=== PATIENT | female | born 1975 | race Caucasian/White ===

== ENCOUNTER 2024-03-22 21:24 | Emergency (ER) | payer OTHER, MEDICAID, SELFPAY ==
[2024-03-22 21:31] VITALS: BP 148/91
[2024-03-22] MEDS: TORADOL 60 MG IM (22:35)
[2024-03-22 22:46] LABS: % Basophils 0.4 % (0-2); % Eosinophils 2.5 % (0-6); % Immature Granulocytes 0.3 % (0-0.5); % Monocytes 7.5 % (1.7-9.3); % Neutrophils 57.3 % (42.2-75.2); Absolute Eosinophils 0.2 10^3/uL (0-0.7); Absolute Lymphocytes 3.1 10^3/uL (1.2-3.4); Absolute Monocytes 0.7 10^3/uL (0.1-0.6); Absolute Neutrophils 5.5 10^3/uL (1.4-6.5); Hematocrit 39.3 % (37.0-47.0); Hemoglobin 13.5 g/dL (12.0-16.0); Mean Corp Hgb Conc. 34.4 g/dL (33.0-37.0); Mean Corpuscular Hgb 29.8 pg (27.0-31.0); Mean Corpuscular Volume 86.8 fL (81.0-99.0); Mean Platelet Volume 9.8 fL (7.4-10.4); Nucleated Red Blood Cells % 0 %; Platelet Count 198 10^3/uL (130-400); Red Blood Cell Count 4.53 10^6/uL (4.20-5.40); Red Cell Dist. Width 12.9 % (11.5-14.5); White Blood Cell Count 9.6 10^3/uL (4.8-10.8)
--- NOTE | 2024-03-22 22:46 | ED.GENMED ---
History of Present Illness
General
Chief Complaint: Back Pain
Source: patient
Exam Limitations: none
Time Seen by Provider: 03/22/24 22:11
History of Present Illness
History of Present Illness:
Patient complaining of low back pain and bilateral knee pain for over a week. No distal numbness tingling. No bowel or bladder issues. No fever. No history of trauma. Patient does walk significantly at work. Taking Advil with no benefit
Past History
Past History
ED Past Medical History: HTN and Hypothyroidism
ED Past Surgical History: and Other
Review of Systems
Review of Systems
All Other Systems: Not applicable
Constitutional: Denies fever or chills
ABD/GI: Reports no symptoms
: Reports no symptoms
Phy Exam
Physical Exam
Physical Exam:
GENERAL: Alert and oriented in no apparent distress
EYE: Orbits normal.
NECK: Supple
CARDIAC: Regular rate and rhythm without any obvious murmurs.
LUNGS: Clear breath sounds,normal
ABDOMEN: Soft, without focal tenderness or distention. Elevated BMI
NEUROLOGICAL: Alert and oriented , grossly non-focal
SKIN: Warm and dry, no rash or lesion, no discoloration, skin intact.
MUSCULOSKELETAL: No edema,no deformity.Good color. Low back pain with straight leg raising. No positive straight leg raising with shooting pain down the leg. Good lower extremity strength bilaterally. Patellar reflexes present but decreased
bilaterally. Able to ambulate without difficulty. Able to flex the hip with some discomfort. Mild paralumbar tenderness. No CVA tenderness. No upper back tenderness. Gait normal.
PSYCH: Normal and appropriate interaction.
Course
Orders/Labs/Results
Orders:
Orders
03/22/24 22:22
Ketorolac [Toradol] 60 mg IM NOW STA
Lumbar Spine, 2 or 3 View [CR Lumbar Spine 2 Or 3 Views] Urgent
Comment:
Reason For Exam: Low back pain
03/22/24 22:34
Basic Metabolic Panel Urgent
CPK [Creatine Phosphokinase] Urgent
CRP [C-Reactive Protein] Urgent
Complete Blood Count/With Diff Urgent
Erythrocyte Sed Rate Urgent
Abnormal Lab Results
03/22/24
22:34
Absolute Monos (auto) 0.7 H 10^3/uL
(0.1-0.6)
Creatinine 0.5 L mg/dL
(0.6-1.0)
03/22/24 22:34
03/22/24 22:34
Vital Signs
Initial and Last Documented VS:
Initial Vital Signs
Temp Pulse Resp BP Pulse Ox
98.4 F 89 20 148/91 99
03/22/24 21:31 03/22/24 21:31 03/22/24 21:31 03/22/24 21:31 03/22/24 21:31
Last Documented Vital Signs
Temp Pulse Resp BP Pulse Ox
98.4 F 89 20 148/91 99
03/22/24 21:31 03/22/24 21:31 03/22/24 21:31 03/22/24 21:31 03/22/24 21:31
*Radiology
Radiology exam reviewed: radiology read reviewed (Degenerative changes)
*Pulse Oximetry
Patient hypoxic: no
*Critical Care Note
Total Time (30-74mins, 75-104mins- exclusive of procedures): Not Applicable
Update Note
Update Note:
Patient neurologically intact. Nothing to support acute neuro surgical emergency. Anti-inflammatories pain management and orthopedic follow-up.
ED Attending Note
-
Portions of this chart may have been created with voice recognition software.� Occasional wrong word or��sound alike� substitutions may have occurred due to the inherent limitations of voice recognition software.
Discharge Plan
Departure
Patient Disposition: Home (Routine Discharge)
Date of Disposition: 03/22/24
Time of Disposition: 23:32
Patient with high blood pressure during this ER visit?: Yes
Discharge Problem:
Low back pain
Instructions: Low Back Pain (DC), BLOOD PRESSURE
Prescriptions:
New
cyclobenzaprine 10 mg tablet
10 mg PO TID PRN (Reason: muscle spasm) Qty: 14 0RF
methylprednisolone [Medrol (Dominic)] 4 mg tablets,dose pack
See Rx Instructions .ROUTE .COMPLEX Qty: 21 0RF
Rx Instructions:
for 6 days
Referrals:
Davis Martin MD [Active] - Next open appointment
UNKNOWN - PT DOES,NOT KNOW [Family Provider] -
Stand Alone Forms: Return to Work
Activity Restrictions/Additional Instructions:
Advil or Motrin for pain
You can also add Tylenol
Flexeril is a muscle relaxer, but it will cause drowsiness
Follow-up with the academic specialist
the prescriptions were sent to your pharmacy
Interventions
Interventions:
*Risk Screen - Suicide Last Done: 03/22/24 21:31
*General Assessment Last Done: 03/22/24 21:31
*Neglect/Abuse Screening Last Done: 03/22/24 21:31
ED- Fall Risk Assessment Last Done: 03/22/24 22:17
ED-Musculoskeletal Assessment Last Done: 03/22/24 22:17
Discharge Date and Time
Print Language: MALAGASY
[2024-03-22 22:59] LABS: Erythrocyte Sed Rate 20 mm/hour (0-20)
[2024-03-22 23:01] LABS: Blood Urea Nitrogen 17 mg/dl (7-17); Calcium 9.8 mg/dl (8.4-10.2); Carbon Dioxide 22 mmol/L (22-30); Chloride 106 mmol/L (98-107); Creatine Phosphokinase 52 U/L (30-135); Glucose 99 mg/dl (70-99); Sodium 141 mmol/L (135-145); eGFR > 60.00
== END 2024-03-22 23:58 | disposition home or self-care (01) ==
LOC: EMR 21:24
PROVIDERS: EMERGENCY PHYSICIAN Emergency Medicine
DX: M54.50 Low back pain, unspecified (principal); M25.561 Pain in right knee; M25.562 Pain in left knee; I10 Essential (primary) hypertension; E03.9 Hypothyroidism, unspecified
CPT/HCPCS: 99283; 72100; 80048; 82550; 85025; 85652; 86140

== ENCOUNTER 2024-07-26 11:39 | Emergency (ER) | payer MEDICAID, OTHER, SELFPAY ==
[2024-07-26 11:46] VITALS: BP 138/100
[2024-07-26 12:24] LABS: % Basophils 0.4 % (0-2); % Eosinophils 1.1 % (0-6); % Immature Granulocytes 0.4 % (0-0.5); % Lymphocytes 15.5 % (20.5-51.1); % Monocytes 16.2 % (1.7-9.3); % Neutrophils 66.4 % (42.2-75.2); Absolute Eosinophils 0.1 10^3/uL (0-0.7); Absolute Lymphocytes 0.7 10^3/uL (1.2-3.4); Absolute Monocytes 0.7 10^3/uL (0.1-0.6); Hemoglobin 13.1 g/dL (12.0-16.0); Mean Corp Hgb Conc. 33.6 g/dL (33.0-37.0); Mean Corpuscular Hgb 30.5 pg (27.0-31.0); Mean Corpuscular Volume 90.7 fL (81.0-99.0); Mean Platelet Volume 9.8 fL (7.4-10.4); Nucleated Red Blood Cells % 0 %; Platelet Count 141 10^3/uL (130-400); Red Cell Dist. Width 12.9 % (11.5-14.5); White Blood Cell Count 4.6 10^3/uL (4.8-10.8)
[2024-07-26 12:29] LABS: ALT (SGPT) 32 U/L (0-35); AST (SGOT) 31 U/L (14-36); Albumin 4.4 g/dl (3.5-5.0); Alkaline Phosphatase 78 U/L (38-126); Blood Urea Nitrogen 10 mg/dl (7-17); Calcium 8.8 mg/dl (8.4-10.2); Carbon Dioxide 26 mmol/L (22-30); Chloride 102 mmol/L (98-107); Glucose 96 mg/dl (70-99); Potassium 3.9 mmol/L (3.5-5.1); Sodium 137 mmol/L (135-145); Total Bilirubin 0.6 mg/dl (0.2-1.3); eGFR > 60.00
[2024-07-26 12:30] LABS: COVID-19 Antigen Negative (Negative)
[2024-07-26 12:53] LABS: Troponin I < 0.012 ng/ml
[2024-07-26 14:10] VITALS: BP 131/89
[2024-07-26] MEDS: DECADRON 10 MG PO (14:52)
[2024-07-26] MEDS: DUONEB 3 ML INH (14:52)
[2024-07-26 16:00] VITALS: BP 135/78
[2024-07-26] MEDS: MOTRIN 600 MG PO (16:19)
[2024-07-26] MEDS: TYLENOL 650 MG PO (16:19)
--- NOTE | 2024-07-26 16:23 | ED.GENMED ---
History of Present Illness
General
Chief Complaint: Breathing Problem
Source: patient
Exam Limitations: none
Time Seen by Provider: 07/26/24 14:40
Nursing documentation reviewed up to this point in time: agreed with
History of Present Illness
History of Present Illness:
49-year-old female presenting to the emergency department today with concerns of 5 days of cough wheeze shortness of breath. Additionally had upper respiratory infection 3 weeks ago as well treat with a Z-Dominic and prednisone had some improvement
last 5 days when symptoms seem to recur. Denies specific fevers chest pain nausea vomiting.
Past History
Past History
ED Past Medical History: HTN and Hypothyroidism
ED Past Surgical History: and Other
Review of Systems
Review of Systems
Allergies reviewed?: Yes
All Other Systems: ROS reviewed and negative except as documented in HPI and ROS
Phy Exam
Physical Exam
Physical Exam:
GENERAL: Alert , in no apparent distress
EYE: pupils equal and reactive
NECK: Supple, no significant adenopathy.
ENT: Swollen boggy nasal turbinates o/p clr, mmm.
CARDIAC: Regular rate and rhythm .
LUNGS: End expiratory wheeze diffusely
ABDOMEN: Soft, without focal tenderness, no r/g, no cvat
NEUROLOGICAL: Alert and oriented, no focal neuro deficits
SKIN: Warm and dry, skin intact.
MUSCULOSKELETAL: No edema, well perfused.
PSYCH: Normal and appropriate interaction.
Scores
Heart Failure Risk
Heart Failure Risk Score: Not Applicable
Course
Orders/Labs/Results
Orders:
Orders
07/26/24 11:54
EKG [Electrocardiogram (*1)] Urgent
Reason for Study: Shortness of Breath
EKG- Treatment ONCE
CXR2 [CR Chest - 2 Views ] Urgent
Comment:
Reason For Exam: SOB
07/26/24 12:02
CMP [Comprehensive Metabolic Panel] Urgent
COVID-19 Antigen Urgent
Source: Nasal Swab
Complete Blood Count/With Diff Urgent
Troponin I Urgent
INF RAPID [Influenza A+B Rapid Molecular] Urgent
THEA Source: Nasal Swab
Specimen Description:
07/26/24 14:44
Dexamethasone [Decadron] 10 mg PO NOW STA
Ipratropium/Albuterol Sulfate [Duoneb] 3 ml INH R NOW ONE
07/26/24 16:15
Acetaminophen [Tylenol] 650 mg PO NOW STA
Ibuprofen [Motrin] 600 mg PO NOW STA
Abnormal Lab Results
07/26/24
12:02
WBC 4.6 L 10^3/uL
(4.8-10.8)
Absolute Lymphs (auto) 0.7 L 10^3/uL
(1.2-3.4)
Absolute Monos (auto) 0.7 H 10^3/uL
(0.1-0.6)
Lymphocytes % 15.5 L %
(20.5-51.1)
Monocytes % 16.2 H %
(1.7-9.3)
Creatinine 0.5 L mg/dL
(0.6-1.0)
07/26/24 12:02
07/26/24 12:02
Vital Signs
Initial and Last Documented VS:
Initial Vital Signs
Temp Pulse Resp BP Pulse Ox
98.6 F 105 20 138/100 97
07/26/24 11:46 07/26/24 11:46 07/26/24 11:46 07/26/24 11:46 07/26/24 11:46
Last Documented Vital Signs
Temp Pulse Resp BP Pulse Ox
98.6 F 104 20 131/89 99
07/26/24 11:46 07/26/24 14:10 07/26/24 14:10 07/26/24 14:10 07/26/24 14:10
MDM/Problems Addressed
MDM/Problems Addressed:
49-year-old female presenting to the emergency department today with concerns of wheeze upper respiratory symptoms over the past few days. Had similar symptoms a few weeks ago that seem to resolve but recur a few days ago. Here she is positive for
the flu. She does have an end expiratory wheeze diffusely. Patient was treated for asthma exacerbation likely secondary to influenza. Symptoms improved while here. Pulse ox remained in the high 90s with ambulatory pulse ox. Stable for
outpatient management return precautions given. Patient was not started on Tamiflu as symptoms likely have been ongoing multiple days at this point.
*Critical Care Note
Total Time (30-74mins, 75-104mins- exclusive of procedures): Not Applicable
ED Attending Note
-
Portions of this chart may have been created with voice recognition software.� Occasional wrong word or��sound alike� substitutions may have occurred due to the inherent limitations of voice recognition software.
Discharge Plan
Departure
Patient Disposition: Home (Routine Discharge)
Date of Disposition: 07/26/24
Time of Disposition: 16:25
Patient with high blood pressure during this ER visit?: No
Condition: Good
Covid-19: Not Applicable
Discharge Problem:
Influenza A, Asthma exacerbation
Instructions: Asthma, Adult (DC)
Prescriptions:
New
albuterol sulfate 2.5 mg /3 mL (0.083 %) solution for nebulization
2.5 mg inhalation QID PRN (Reason: bronchospasm) Qty: 180 0RF
prednisone 20 mg tablet
40 mg PO DAILY 4 Days Qty: 8 0RF
No Action
cyclobenzaprine 10 mg tablet
10 mg PO TID PRN (Reason: muscle spasm) Qty: 14 0RF
methylprednisolone [Medrol (Dominic)] 4 mg tablets,dose pack
See Rx Instructions .ROUTE .COMPLEX Qty: 21 0RF
Rx Instructions:
for 6 days
Referrals:
Janice Zapata MD [Family Provider] -
Activity Restrictions/Additional Instructions:
You came to the emergency department today with concerns of upper respiratory symptoms. You are found to have an asthma exacerbation as well as the flu. Please take prescribed medications. Hopefully symptoms will improve over the next few days.
Return for any worsening, new or concerning symptoms.
Interventions
Interventions:
*Risk Screen - Suicide Last Done: 07/26/24 11:52
*Neglect/Abuse Screening Last Done: 07/26/24 11:52
*ED COVID-19 Vaccine History Last Done: 07/26/24 11:46
Discharge Date and Time
Print Language: POLISH
== END 2024-07-26 16:40 | disposition home or self-care (01) ==
LOC: EMR 11:39
PROVIDERS: Emergency Medicine; EMERGENCY PHYSICIAN Emergency Medicine; FAMILY PHYSICIAN Family Medicine
DX: J45.901 Unspecified asthma with (acute) exacerbation (principal); J10.1 Influenza due to other identified influenza virus with other respiratory manifestations; Z11.52 Encounter for screening for COVID-19; E03.9 Hypothyroidism, unspecified; I10 Essential (primary) hypertension; G43.909 Migraine, unspecified, not intractable, without status migrainosus; G47.30 Sleep apnea, unspecified; D64.9 Anemia, unspecified; F41.9 Anxiety disorder, unspecified; F32.A Depression, unspecified
CPT/HCPCS: 99283; 94640; 71046; 80053; 84484; 85025; 87502; 87811; 93005